=== PATIENT | male | born 1955 | race Caucasian/White ===

== ENCOUNTER 2025-03-22 09:01 | Emergency (ER) | payer MEDICARE, SELFPAY ==
--- NOTE | ~2025-03-22 | XR_ITS ---
Examination: XR wrist RT min 3V Clinical History: injury, fall, RT wrist pain, swelling and bruising Comparison: None Technique: 4 views right wrist Findings/impression: 1. Impacted and comminuted fracture distal radius with intra-articular extension. 2. Avulsion fracture ulnar styloid. Reviewed, dictated and finalized at location R. LING COUNSELLOR
[2025-03-22 09:13] VITALS: BP 144/86; PULSE 107; RESP 17; TEMP 36.7; O2SAT 100
--- NOTE | 2025-03-22 09:21 | ED_ITS ---
HPI - General Adult General Chief complaint: Extremity Injury, Upper <KYLEE Abel - Last Filed: 03/22/25 18:31> Stated complaint: R WRIST INJURY <KYLEE Abel - Last Filed: 03/22/25 18:31> Time Seen by Provider: 03/22/25 09:05 <KYLEE Abel - Last Filed: 03/22/25 18:31> 69-year-old male presenting after a fall yesterday. Patient states he slipped and fell backwards when he stepped out of his car and attempted to catch himself resulting in the wrist being forced into hyperflexion. He states he did not hit his head on. Pain well controlled with aspirin and reports no pain anywhere else. Neurovascular intact. Denies numbness/tingling. <KYLEE Abel - Last Filed: 03/22/25 18:31> History of Present Illness HPI narrative: 69-year-old male presenting after a fall yesterday. Patient states he slipped and fell backwards when he stepped out of his car and attempted to catch himself resulting in the wrist being forced into hyperflexion. He states he did not hit his head on. Pain well controlled with aspirin and reports no pain anywhere else. Neurovascular intact. Denies numbness/tingling. <Caryn Swanson MD - Last Filed: 03/22/25 18:47> Related Data Allergies/adverse reactions: Allergies Allergy/AdvReac Type Severity Reaction Status Date / Time doxycycline Allergy Rash Verified 03/22/25 09:11 <KYLEE Abel - Last Filed: 03/22/25 18:31> Review of Systems Review of Systems: All systems reviewed & are unremarkable except as noted in HPI and below <KYLEE Abel - Last Filed: 03/22/25 18:31> Exam Narrative: GENERAL: Well-appearing, well-nourished, and in no acute distress. HEAD: Normocephalic, atraumatic. EYES: PERRLA and EOMI. ENT: Nares clear, no rhinorrhea or epistaxis. Mucous membranes moist. Oropharynx without tonsillar hypertrophy exudate or other lesions. Bilateral TMs pearly worthy non-bulging NECK: Supple. No adenopathy or masses. No carotid bruits or JVD CHEST: Clear to auscultation. No respiratory distress. No wheezes rales or rhonchi HEART: Regular rate and rhythm. No murmur heard. Normal peripheral pulses. ABDOMEN: Soft, nontender, nondistended, normal active bowel sounds. EXTREMITIES: Right wrist swelling and ecchymosis noted over both anterior and posterior radial aspects. 4/5 strength. Range of motion limited by edema. No tenderness over the anatomic snuffbox. Neurovascular intact. SKIN: Warm, dry, no rash. NEURO: No focal deficits. Alert and oriented x3. 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 <Caryn Swanson MD - Last Filed: 03/22/25 18:47> Vital Signs Vital signs: Vital Signs Temperature 98.0 F 03/22/25 09:13 Pulse Rate 107 H 03/22/25 09:13 Respiratory Rate 17 03/22/25 09:13 Blood Pressure 144/86 H 03/22/25 09:13 Pulse Oximetry 100 03/22/25 09:13 Oxygen Delivery Room Air 03/22/25 09:13 Temperature 98.0 F 03/22/25 09:13 Pulse Rate 68 03/22/25 12:41 Respiratory Rate 20 03/22/25 12:41 Blood Pressure 137/86 03/22/25 12:41 Pulse Oximetry 99 03/22/25 12:41 Oxygen Delivery Room Air 03/22/25 09:13 <KYLEE Abel - Last Filed: 03/22/25 18:31> Vital Signs Temperature 98.0 F 03/22/25 09:13 Pulse Rate 107 H 03/22/25 09:13 Respiratory Rate 17 03/22/25 09:13 Blood Pressure 144/86 H 03/22/25 09:13 Pulse Oximetry 100 03/22/25 09:13 Oxygen Delivery Room Air 03/22/25 09:13 Temperature 98.0 F 03/22/25 09:13 Pulse Rate 68 03/22/25 12:41 Respiratory Rate 20 03/22/25 12:41 Blood Pressure 137/86 03/22/25 12:41 Pulse Oximetry 99 03/22/25 12:41 Oxygen Delivery Room Air 03/22/25 09:13 <Caryn Swanson MD - Last Filed: 03/22/25 18:47> Medical Decision Making MDM Narrative Medical decision making narrative: 69-year-old male presenting after a fall yesterday. Patient states he slipped and fell backwards when he stepped out of his car and attempted to catch himself resulting in the wrist being forced into hyperflexion. He states he did not hit his head. Pain well controlled with aspirin and reports no pain anywhere else. Neurovascular intact. Imaging demonstrates an impacted and comminuted fracture of distal radius with intra-articular extension and an avulsion fracture to the ulnar styloid. Di scussed with Ortho Dr. Cruz patient presentation and workup. Agrees with plan for splint and outpatient follow-up. Splint was placed by the emergency department air quality technician under my supervision. The patient was neurovascularly intact both pre-and post-procedure. Will send patient home with pain regimen. Pain is controlled at this time. Treatment plan was discussed with the patient. Patient agrees with discussion and after shared medical decision making agrees with plan of care. All questions were answered to the patient's satisfaction. Given reasons to return. <KYLEE Abel - Last Filed: 03/22/25 18:31> Medical Records Medical records reviewed: Yes I reviewed the external patient's medical records. <KYLEE Abel - Last Filed: 03/22/25 18:31> Vital Signs Vital Signs: Vital Signs Temperature 98.0 F 03/22/25 09:13 Pulse Rate 107 H 03/22/25 09:13 Respiratory Rate 17 03/22/25 09:13 Blood Pressure 144/86 H 03/22/25 09:13 Pulse Oximetry 100 03/22/25 09:13 Oxygen Delivery Room Air 03/22/25 09:13 Temperature 98.0 F 03/22/25 09:13 Pulse Rate 68 03/22/25 12:41 Respiratory Rate 20 03/22/25 12:41 Blood Pressure 137/86 03/22/25 12:41 Pulse Oximetry 99 03/22/25 12:41 Oxygen Delivery Room Air 03/22/25 09:13 <KYLEE Abel - Last Filed: 03/22/25 18:31> Vital Signs Temperature 98.0 F 03/22/25 09:13 Pulse Rate 107 H 03/22/25 09:13 Respiratory Rate 17 03/22/25 09:13 Blood Pressure 144/86 H 03/22/25 09:13 Pulse Oximetry 100 03/22/25 09:13 Oxygen Delivery Room Air 03/22/25 09:13 Temperature 98.0 F 03/22/25 09:13 Pulse Rate 68 03/22/25 12:41 Respiratory Rate 20 03/22/25 12:41 Blood Pressure 137/86 03/22/25 12:41 Pulse Oximetry 99 03/22/25 12:41 Oxygen Delivery Room Air 03/22/25 09:13 <Caryn Swanson MD - Last Filed: 03/22/25 18:47> Imaging Data Attestation: I personally reviewed and interpreted this imaging study as follows: <KYLEE Abel - Last Filed: 03/22/25 18:31> Radiologist's impression: RT wrist XR findings/impression: 1. Impacted and comminuted fracture distal radius with intra-articular extension. 2. Avulsion fracture ulnar styloid. <KYLEE Abel - Last Filed: 03/22/25 18:31> Discharge Plan Discharge Clinical Impression: Fracture of wrist <KYELE Abel - Last Filed: 03/22/25 18:31> Patient Disposition: Home <KYLEE Abel - Last Filed: 03/22/25 18:31> Condition: Stable <KYLEE Abel - Last Filed: 03/22/25 18:31> Instructions: Wrist Fracture in Adults (ED), Splint Care (ED) <KYLEE Abel - Last Filed: 03/22/25 18:31> Additional Instructions: Return to the ER if you experience fever, redness and swelling of your extremity, numbness or any other symptoms that are concerning to you. Wear splint. Limit activity. Elevate extremity. Pain medication as needed and directed. Do not drive, operate heavy machinery, drink alcohol while on opiates as this may cause further sedation. Follow-up with orthopedics. Follow up with your doctor for any other general concerns. <KYLEE Abel - Last Filed: 03/22/25 18:31> Patient Language: Azeri <KYLEE Abel - Last Filed: 03/22/25 18:31> Prescriptions: New hydrocodone-acetaminophen 5-325 mg tablet 1 tablet PO Q6H PRN (Reason: pain) Qty: 10 0RF <KYLEE Abel - Last Filed: 03/22/25 18:31> Follow-up/Referrals: Lei Cruz MD [Physician, Orthopedics] PHYSICIAN NOT ON STAFF,NONSTAFF [Non-Staff] <KYLEE Abel - Last Filed: 03/22/25 18:31>
--- OUTSIDE RECORDS SUMMARY | 2025-03-22 11:18 | XMS_ITS | Data Portability ---
Author Organization [facility], [employer] Address [address] [address] Assessment No assessment recorded. Plan of Treatment Reminders Order Date Submit Date Provider Last Modified By Organization Details Last Modified Time Details Appointments None recorded. Lab lipid panel, serum 2020 021 lcallison Not available 08:50:39 CK (creatine kinase), total, serum 2020 lcallison Not available 08:50:39 PSA, serum or plasma 2020 DHEERAJ Not available 16:42:13 fecal occult blood, immunoassa y, stool 2020 DHEERAJ Not available 16:42:10 microalbum in/creatin ine, mass ratio, urine 2020 021 lcallison Not available 08:50:38 TSH + free T4, serum 2020 021 lcallison Not available 08:50:38 T3, free, serum or plasma 2020 021 lcallison Not available 08:50:39 CMP, serum or plasma 2020 021 lcallison Not available 08:50:39 hepatitis C virus Ab, serum 2020 021 lcallison Not available 08:50:39 Referral gastroente rologist referral 2020 021 ATHENAFAX Not available 16:50:29 Procedures None recorded. Surgeries None recorded. Imaging electrocar diogram 2020 021 DHEERAJ [place] [facility], [address], [place], [address], 12:09:26 Medication Orders None recorded. Patient TargetsNo targets recorded. Patient InstructionsNo instructions recorded. Reason for Referral [employer] Referral for Screening for malignant neoplasm of colon Referring Physician: Dung Neal, Internal Medicine, Encounter Date: 09/08/2020 Results Created Date Observation Date Name Description Value Unit Range Abnormal Flag Note LastModifiedBy Organization Detail LastModifiedTime 09/09/19 21 09/12/2020 elect rocar diogr am No observ ation record ed. [email or web address] [facility] [address], [place], [address], 09/12/2020 12:09:26 09/09/19 elect rocar diogr am No observ ation record ed. [email or web address] Not Available 2020 12:09:15 Result Notes None recorded. Medical Equipment None Reported. Allergies Allergen ID Allergen Name Allergen Category Reaction Reaction Severity Criticality Documentation Date Start Date Code Code System Note Provider Name and Address Organization Details Recorded Time 9769 doxycycli ne Not available rash Not available Not available 09/08/2020 3640 RxNorm Chloé mullen [facility] 15:18:58 9770 Product containin g penicilli n (product) medicatio n rash Not available Not available 09/08/2020 65059 8001 SNOMED Chloé mullen [facility] 15:19:05 Medications Name Sig Start Date Stop Date Status Note LastModified by Organization Details LastModified Time prednisone 20 mg tablet TAKE 2 TABLETS BY MOUTH ONCE A DAY FOR 6 DAYS 09/08 completed Not Available Not Available Not Available permethrin 5 % topical cream PLEASE SEE ATTACHED FOR DETAILED DIRECTION S 09/08 completed Not Available Not Available Not Available meclizine 25 mg tablet active Not Available Not Available Not Available moxifloxaci n 0.5 % eye drops INSTILL 1 DROP INTO AFFECTED EYE 3 TIMES A DAY FOR 7 DAYS 09/08 completed Not Available Not Available Not Available Vitals Date Recorded Body height Body mass index (BMI) Body weight Respiratory rate Heart rate Body temperature Systolic And Diastolic Provider Name and Address Organization Details Last Updated DateTime 182.88 cm 19.8 kg/m2 24610.4 9 g 16 /min 71 /min 98 [degF] 155/86 mm[Hg] Chloé Lisandra [facility] 15:50:02 Social History Question Answer Notes LastModified by Organization Details LastModified Time Tobacco Smoking Status Never Smoker Chloé Fry [facility] 09/08/2020 15:19:35 What Is Your Level Of Caffeine Consumption? Occasional Soda Occasionally Information not available 09/08/2020 How Much Tobacco Do You Chew? None Information not available 09/08/2020 In The 14 Days Before Symptom Onset, Have You Had Close Contact With A Laboratory-confi rmed COVID-19 While That Case Was Ill? No Information not available 09/08/2020 In The 14 Days Before Symptom Onset, Have You Had Close Contact With A Person Who Is Under Investigation For COVID-19 While That Person Was Ill? No Information not available 09/08/2020 Have You Been To An Area Known To Be High Risk For COVID-19? No Information not available 09/08/2020 Marital Status Single Informatio n not available 09/08/2020 What Was The Date Of Your Most Recent Tobacco Screening? 09/08/2020 Information not available 09/08/2020 How Much Tobacco Do You Smoke? No Information not available 09/08/2020 How Many Years Have You Smoked Tobacco? 0 Information not available 09/08/2020 Sex: Unknown Functional Status Question Answer Note LastModified by Organizat ion Details LastModified Time What is your level of alcohol consumption? None Information not available 09/08/2020 Do you or have you ever used smokeless tobacco? Never used smokeless tobacco Information not available 09/08/2020 Are you currently employed? Yes Information not available 09/08/2020 What is your occupation? Works @ [employer] Information not available 09/08/2020 Do you or have you ever used e-cigarettes or vape? Never used electronic cigarettes Information not available 09/08/2020 Mental Status None recorded. Family History Relationship Description Onset Age of this Age Resolved Age Notes LastModified by Organization Details LastModified Time Father Hypertensive disorder lcallison Not available 2020 15:19:21 Father Parkinson's disease lcallison Not available 2020 15:37:44 Father Carcinoma of prostate 75 -- dx'd at 75 y/o Not available 09/08/2020 16:27:49 Mother Dementia 86 -- dx'd around 86b y/o Not available 09/08/2020 16:30:15 Notes:-- no FH for any DM, o r CAD Medical History No medical history recorded. Immunizations Vaccine Type Date Status Note Provider Nam e and Address Organization Details Recorded Time COVID-19 vaccine, vector-nr, rS-Ad26, PF, 0.5 mL 07/25/2020 completed Chloé Fry [place], [place] - [facility] 09/08/2020 15:37:06 Past Encounters Encounter ID Performer Location Encounter Start Date Encounter Closed Date Diagnosis/Indication Diagnosis SNOMED-CT Code Diagnosis ICD10 Code Diagnosis IMO Codes Diagnosis Note [id number] Dung Neal MD [facility], [facility] [address] [address] 09/08/2020 14:45:54 09/08/2020 16:43:19 Essential hypertension 28397941 I10 -- [facility] -- will need to keep BP controlled by restrictin g daily Sodium intake to between 1-2 grams of Sodium intake per 24 hours -- examples of salty foods include: smoked salmon, canned green beans, chicken noodle soups, TV dinners, salted nuts, chips, lopez, Pepperoni, Parmesan cheese, Ramen noodles, Sauerkraut , dill pickles, canned tomato sauce, etc. Hepatitis C screening 41 7767960 Z11.59 Body mass index less than 20 651420671 Z68.1 -- pt has not weight in the last 20 years -- I advised pt to gain about 5 pounds Active or passive immunization 523571046 Z23 Screening for malignant neoplasm of colon 661383825 Z12.11 Screening for malignant neoplasm of prostate 937606284 Z12.5 Hyperlipid emia screening 776467417 Z13.220 Health Concerns Section Related Observation LastModified by Organization Detai ls LastModified Time None Recorded Concern Status LastModified by Organization Details LastModified Time None Recorded Advance Directives Directive None Recorded Payers Insurance Date Sequence Insurance Name Policy Number Policy Laureano Covered Member ID Laureano Member ID Guarantor Name 12/03/2020 1 [place] [id number] 5 Shiv Boone [id number] Shiv Boone Notes Date Note Type Note Provider Name and Address Organization Details Recorded Time 09/08/2020 text/html Pt comes in to get aquainted Medically. He feels well and has no c/o except that he has been told he has high blood pressure. Patient denies any jaw or neck discomfort, left arm pain/left arm discomfort, chest discomfort/pain, diaphoresis, breathing symptoms/chest tightness, indigestion sx, n/v, any angina equivalent symptoms, etc. Dung Neal MD [address] [facility] [address], [place], [address], [facility] 09/08/2020 16:42:00
--- OUTSIDE RECORDS SUMMARY | 2025-03-22 11:18 | XMS_ITS | Clinical Summary ---
Author Organization [facility] Address [address] [place] [address] Care Team Providers Care Hat Lining Blocker Name Role Phone Unavailable Primary Care Provider Unavailabl e Source Comments [facility],non-owned Affiliates and Associated Physician Practices is amultiple site organization consisting of ambulatory clinics and hospital sitesin [place], [place], [place] and [place]. This disclosure is being madepursuant to the Care Everywhere program and may not contain all information available regarding this patient. Last updated 18.[facility] Social History Tobacco Use Types Packs/Day Years Used Date Smoking Tobacco: Never Assessed Sex and Gender Information Value Date Recorded Sex Assigned at Not on file Legal Sex Male 9:00 AM CDT Gender Identity Not on file Sexual Orientation Not on file Plan of Treatment Health Maintenance Due Date Last Done Comments COLOGUARD (AGES 45-75) - COL ON CA SCREENING 1956 COLON MONITORING 1956 COLONOSCOPY - COLON CA SCREENING 1956 CT COLONOGRAPHY - COLON CA SCREENING 1956 Colorectal Cancer Screening 1956 FIT - COLON CA SCREENING 1956 FLEX SIG - COLON CA SCREENING 1956 LIPID TESTING 1956 HEPATITIS C SCREENING 07/28/1974 DTAP/TDAP/TD VACCINES (1 - Tdap) 08/02/1975 PNEUMOCOCCAL VACCINE 50+ (1 of 1 - PCV) 2006 ZOSTER VACCINE (1 of 2) 2006 DEPRESSION SCREENING 04/22/2024 COVID-19 VACCINE (1 - 2024-2 6 season) 2024 INFLUENZA VACCINE (#1) 2024 Respiratory Syncytial Virus (RSV) Vaccine Pt: or over 60 yrs (1 - 1-dose 75+ series) 08/02/2031 HEPATITIS B VACCINE Aged Out No longe r eligible based on patient's age to complete this topic HIB VACCINE Aged Out No longer eligi ble based on patient's age to complete this topic HPV VACCINE Aged Out No longer eligi ble based on patient's age to complete this topic MENINGOCOCCAL (Group B) VACC INE SHARED DECISION-MAKING Aged Out No longer eligibl e based on patient's age to complete this topic MENINGOCOCCAL GROUPS A/C/Y/W VACCINE Aged Out No longer eligible b ased on patient's age to complete this topic
[2025-03-22 12:41] VITALS: BP 137/86; PULSE 68; RESP 20; O2SAT 99
== END 2025-03-22 12:43 | disposition home or self-care (01) ==
PROVIDERS: PCP Internal Medicine
DX: S52.571A Other intraarticular fracture of lower end of right radius, initial encounter for closed fracture (principal); S52.611A Displaced fracture of right ulna styloid process, initial encounter for closed fracture; W01.0XXA Fall on same level from slipping, tripping and stumbling without subsequent striking against object, initial encounter
CPT/HCPCS: 29125; 73110; 99284; A4565